=== PATIENT | female | born 1990 | race Caucasian/White ===

== ENCOUNTER 2018-02-24 06:09 | Emergency (ER) | payer MEDICAID ==
[~2018-02-24] VITALS: Ht 180.3 cm; Wt 156.0 kg
[~2018-02-24 06:09] MED LIST: SERT25TA PO
[2018-02-24 06:11] VITALS: BP 137/87
[2018-02-24] MEDS ORDERED: SERT25TA PO (06:17)
--- NOTE | 2018-02-24 06:38 | NUR ---
PT SITTING ON SIDE OF [facility], PRESENTED WITH C/O SORE THROAT, PROVIDED PT WITH WARM BLANKET, MONITOR APPLIED, CALL LIGHT WITHIN REACH. AWAITING RAPID STREP RESULT
--- NOTE | 2018-02-24 06:47 | NUR ---
RECEIVED BEDSIDE REPORT FROM GIANFRANCO KLEIN.
--- NOTE | 2018-02-24 06:49 | NUR ---
REPORT GIVEN TO GIANFRANCO THRASHER
--- NOTE | 2018-02-24 07:07 | NUR ---
Patient/Caregiver given discharge instructions and they have confirmed that they understand the instructions. Patient ambulatory with steady gait. PT LEFT WITH ALL PERSONAL BELONGINGS. PT EDUCATED TO USE THROAT SPRAY OTC AND GAGRLE WITH WARM SALT WATER. PT VERBALIZED UNDERSTANDING.
== END 2018-02-24 07:09 | disposition home or self-care (01) ==
LOC: ED 07:00
DX: J02.0 Streptococcal pharyngitis (principal); Z88.0 Allergy status to penicillin
CPT/HCPCS: 87880; 99283

== ENCOUNTER 2018-02-26 04:16 | Emergency (ER) | payer MEDICAID ==
[~2018-02-26] VITALS: Ht 180.3 cm; Wt 156.7 kg
[2018-02-26 04:23] VITALS: BP 144/89
[2018-02-26] MEDS ORDERED: HYDROcodone/APAP 7.5-325MG/15ML UDC PO ONE (05:00)
[2018-02-26] MEDS ORDERED: SODIUM CHLORIDE FLUSH 10ML SYR IVF ONE (05:00)
[2018-02-26] MEDS ORDERED: DEXAMETHASONE 4 MG/ML, 1ML IV ONE (05:00)
[2018-02-26] MEDS ORDERED: DEXAMETHASONE 4 MG/ML, 5ML ONE (05:02)
[2018-02-26] MEDS ORDERED: HYDROcodone/APAP 7.5-325MG/15ML UDC ONE (05:02)
[2018-02-26 05:25] LABS: BASOPHILS # (AUTO) 0.12 x10^3/uL (0-0.1); BASOPHILS % (AUTO) 1 % (0-1); EOSINOPHILS # (AUTO) 0.29 x10^3/uL (0-0.4); EOSINOPHILS % (AUTO) 3 % (1-7); LYMPHOCYTES # (AUTO) 3.39 x10^3/uL (1-3.4); LYMPHOCYTES % (AUTO) 29 % (22-44); MD NO; MEAN CORPUSCULAR HEMOGLOBIN 29.2 pg (27.0-34.8); MEAN CORPUSCULAR HGB CONC 33.5 g/dL (32.4-35.8); MEAN CORPUSCULAR VOLUME 87.1 fL (80-100); MEAN PLATELET VOLUME 8.4 fL (7.4-10.4); MONOCYTES # (AUTO) 1.13 x10^3/uL (0.2-0.8); MONOCYTES % (AUTO) 10 % (2-9); NEUTROPHILS # (AUTO) 6.72 x10^3/uL (1.8-6.8); NEUTROPHILS % (AUTO) 58 % (42-75); PLATELET COUNT 264 x10^3/uL (130-400); RED BLOOD COUNT 5.21 x10^6/uL (3.82-5.3); RED CELL DISTRIBUTION WIDTH 13.8 % (9.6-15.2)
[2018-02-26 05:29] LABS: ALBUMIN 3.3 g/dL (3.4-5.0); ANION GAP 6 mmol/L (5-15); CHLORIDE 105 mmol/L (98-107); CREATININE 0.73 mg/dL (0.55-1.02)
--- NOTE | 2018-02-26 05:34 | NUR ---
TO ROOM FROM TRIAGE WITH C/O STREP THROAT DX A FEW DAYS AGO HERE NOW WITH WORSE PAIN. PIV PLACED AND MEDICATED PER MD ORDER
--- NOTE | 2018-02-26 05:59 | NUR ---
BACKFROM CT AT THIS TIME, PIV INFILTRATED IN CT, AND REMOVED IN CT, PT IN NAD
--- NOTE | 2018-02-26 06:54 | NUR ---
received report from Karen. pt laying on gurney with eyes closed, responds approp to staff, NAD, comfort measures provided, call light within reach.
--- NOTE | 2018-02-26 07:35 | NUR ---
Patient given discharge instructions and Rx, they have confirmed that they understand the instructions. Patient ambulatory with steady gait.
== END 2018-02-26 07:37 | disposition home or self-care (01) ==
LOC: ED 05:43
DX: J02.0 Streptococcal pharyngitis (principal); F17.210 Nicotine dependence, cigarettes, uncomplicated
CPT/HCPCS: 36415; 70491; 80048; 82040; 85025; 86308; 96374; 99284; J1100

== ENCOUNTER 2018-04-13 11:21 | Emergency (ER) | payer MEDICAID ==
[~2018-04-13] VITALS: Ht 180.3 cm; Wt 156.4 kg
--- NOTE | 2018-04-13 11:39 | NUR ---
PT TO ROOM AT THIS TIME
--- NOTE | 2018-04-13 11:58 | NUR ---
27 Y/O FEMALE PRESENTS TO ED WITH C/O LOWER FLANK PAIN X4DAYS. "I HAVE SOME LOWER BACK PAIN ON BOTH SIDES. IT'S MORE ON THE RIGHT AND WRAPS AROUND TO THE FRONT. " NO C/O N/V/D, TRAUMA, SYNCOPE, CP, SOB, DYSURIA. PT AMBULATORY WITH STEADY GAIT TO BATHROOM.
--- NOTE | 2018-04-13 12:12 | NUR ---
PT BACK FROM BATHROOM. PT ATTACHED TO ALL MONITORS. EDMD BEDSIDE. UA SENT TO LAB.
[2018-04-13 12:13] LABS: BASOPHILS # (AUTO) 0.19 x10^3/uL (0-0.1); BASOPHILS % (AUTO) 2 % (0-1); EOSINOPHILS # (AUTO) 0.17 x10^3/uL (0-0.4); EOSINOPHILS % (AUTO) 1 % (1-7); LYMPHOCYTES % (AUTO) 35 % (22-44); MD NO; MEAN CORPUSCULAR HEMOGLOBIN 29.1 pg (27.0-34.8); MEAN CORPUSCULAR HGB CONC 33.2 g/dL (32.4-35.8); MEAN CORPUSCULAR VOLUME 87.5 fL (80-100); MEAN PLATELET VOLUME 8.6 fL (7.4-10.4); MONOCYTES % (AUTO) 9 % (2-9); NEUTROPHILS # (AUTO) 6.24 x10^3/uL (1.8-6.8); NEUTROPHILS % (AUTO) 53 % (42-75); PLATELET COUNT 297 x10^3/uL (130-400); RED BLOOD COUNT 5.43 x10^6/uL (3.82-5.3); RED CELL DISTRIBUTION WIDTH 14.6 % (9.6-15.2)
[2018-04-13 12:22] LABS: MICROSCOPIC INDICATED
[2018-04-13 12:31] LABS: ALBUMIN 3.6 g/dL (3.4-5.0); ANION GAP 5 mmol/L (5-15); CALCIUM 9.6 mg/dL (8.5-10.1); CHLORIDE 108 mmol/L (98-107)
[2018-04-13 12:34] LABS: CULTURE INDICATED? YES
[2018-04-13 12:37] LABS: CREATININE 0.92 mg/dL (0.55-1.02)
--- NOTE | 2018-04-13 12:54 | NUR ---
BEDSIDE REPORT TO GIANFRANCO MERAZ
[2018-04-13 13:07] VITALS: BP 137/85
--- NOTE | 2018-04-13 13:14 | NUR ---
REPORT RECEIVED FROM GIANFRANCO THRASHER AT BEDSIDE. PT IS A&O, RESPS EVEN AND UNLABORED. PT REPORTS BILATERAL LOWER BACK PAIN RADIATING TO RIGHT LOWER GROIN, 06/06. PT DENIES NEED FOR PAIN MED AT THIS TIME. CALL LIGHT IN REACH. AWAITING CT RESULTS AND DISPO AT THIS TIME.
--- NOTE | 2018-04-13 14:09 | NUR ---
CARE FOR DC ONLY PROVIDED: PT SITTING ON EDGE OF [facility]. REVIEWED DC INSTRUCTIONS WITH PT, DISCUSSED FOLLOW UP WITH [facility] OR [facility] FOR ADDITIONAL TESTING. PT LEFT AMB. NO IV TO DC.
== END 2018-04-13 14:12 | disposition home or self-care (01) ==
LOC: ED 12:38
DX: S33.5XXA Sprain of ligaments of lumbar spine, initial encounter (principal); X58.XXXA Exposure to other specified factors, initial encounter; Y93.89 Activity, other specified; Y92.89 Other specified places as the place of occurrence of the external cause; Y99.8 Other external cause status
CPT/HCPCS: 36415; 74176; 80048; 81001; 82040; 84703; 85025; 87086; 99284

== ENCOUNTER 2018-09-27 16:48 | Emergency (ER) | payer MEDICAID ==
[~2018-09-27] VITALS: Ht 180.3 cm; Wt 154.2 kg
[2018-09-27 17:07] VITALS: BP 139/88
[2018-09-27] MEDS ORDERED: DEXAMETHASONE 1 MG TABLET PO STA (17:49)
[2018-09-27] MEDS ORDERED: DEXAMETHASONE 4 MG TABLET ONE (17:55)
[2018-09-27] MEDS ORDERED: DEXAMETHASONE 4 MG TABLET PO STA (18:04)
== END 2018-09-27 18:28 | disposition home or self-care (01) ==
LOC: ED 18:14
DX: J20.8 Acute bronchitis due to other specified organisms (principal); J00 Acute nasopharyngitis [common cold]; F17.200 Nicotine dependence, unspecified, uncomplicated
CPT/HCPCS: 71046; 99283

== ENCOUNTER 2018-10-01 07:23 | Emergency (ER) | payer MEDICAID ==
[~2018-10-01] VITALS: Ht 180.3 cm; Wt 155.0 kg
--- NOTE | 2018-10-01 07:41 | NUR ---
PT TREATED RECENTLY FOR A URI, WAS GIVEN STEROIDS AND TOLD TO TAKE IBU ABOUT 5 DAYS AGO. PT STATES HER SYMPTOMS OF COUGH AND CONGESTION HAVE GOTTON WORSE. PT DENIES CP, STATES IS SOB W/O EXCERTION. PT TO NIBP, CONT PULSE OX. ER PROVIDER IN TO [facility] PT
[2018-10-01 08:07] LABS: BASOPHILS # (AUTO) 0.06 x10^3/uL (0-0.1); BASOPHILS % (AUTO) 1 % (0-1); EOSINOPHILS # (AUTO) 0.64 x10^3/uL (0-0.4); EOSINOPHILS % (AUTO) 6 % (1-7); LYMPHOCYTES % (AUTO) 32 % (22-44); MD NO; MEAN CORPUSCULAR HEMOGLOBIN 28.1 pg (27.0-34.8); MEAN CORPUSCULAR HGB CONC 33.1 g/dL (32.4-35.8); MEAN CORPUSCULAR VOLUME 84.8 fL (80-100); MEAN PLATELET VOLUME 8.4 fL (7.4-10.4); MONOCYTES # (AUTO) 1.06 x10^3/uL (0.2-0.8); MONOCYTES % (AUTO) 10 % (2-9); NEUTROPHILS # (AUTO) 5.87 x10^3/uL (1.8-6.8); NEUTROPHILS % (AUTO) 53 % (42-75); PLATELET COUNT 277 x10^3/uL (130-400); RED BLOOD COUNT 5.68 x10^6/uL (3.82-5.3)
[2018-10-01 08:14] LABS: ALBUMIN 3.6 g/dL (3.4-5.0); ANION GAP 7 mmol/L (5-15); CALCIUM 9.2 mg/dL (8.5-10.1); CHLORIDE 110 mmol/L (98-107); CREATININE 0.93 mg/dL (0.55-1.02)
[2018-10-01 08:17] VITALS: BP 129/87
--- NOTE | 2018-10-01 08:21 | NUR ---
PT RESTING ON [facility]. EKG AND CHEST DX COMPLETED, RESULTS PENDING. VSS NAD NOTED
== END 2018-10-01 09:02 | disposition home or self-care (01) ==
LOC: ED 07:44
DX: M94.0 Chondrocostal junction syndrome [Tietze] (principal); H60.91 Unspecified otitis externa, right ear; B34.9 Viral infection, unspecified; F17.210 Nicotine dependence, cigarettes, uncomplicated
CPT/HCPCS: 36415; 71046; 80048; 82040; 85025; 85379; 93005; 99284

== ENCOUNTER 2019-05-30 19:12 | Emergency (ER) | payer MEDICAID, OTHER ==
[~2019-05-30] VITALS: Ht 182.9 cm; Wt 151.0 kg
[2019-05-30 19:15] VITALS: BP 122/91
== END 2019-05-30 20:35 | disposition home or self-care (01) ==
LOC: ED 20:02
DX: B34.9 Viral infection, unspecified (principal)
CPT/HCPCS: 71045; 99283